=== PATIENT | male | born 1945 | race Caucasian/White ===

== ENCOUNTER 2024-02-28 07:35 | Emergency (ER) | payer MEDICARE, SELFPAY ==
[2024-02-28] VITALS (11 sets, daily range): BP systolic 80–152; BP diastolic 52–87; BMI 41.8
[2024-02-28] MEDS: NITROSTAT (SUBLINGUAL) 0.400000000000000022 MG SL (08:05)
[2024-02-28 08:23] LABS: % Basophils 0.3 % (0-2); % Immature Granulocytes 0.5 % (0-0.5); % Lymphocytes 9.6 % (20.5-51.1); % Monocytes 5.5 % (1.7-9.3); % Neutrophils 83.1 % (42.2-75.2); Absolute Eosinophils 0.1 10^3/uL (0-0.7); Absolute Lymphocytes 0.8 10^3/uL (1.2-3.4); Absolute Monocytes 0.5 10^3/uL (0.1-0.6); Absolute Neutrophils 7.3 10^3/uL (1.4-6.5); Hematocrit 43.6 % (39.0-52.0); Hemoglobin 14.7 g/dL (13.0-18.0); Mean Corp Hgb Conc. 33.7 g/dL (33.0-37.0); Mean Corpuscular Hgb 29.9 pg (27.0-31.0); Mean Corpuscular Volume 88.8 fL (80.0-94.0); Mean Platelet Volume 9.9 fL (7.4-10.4); Nucleated Red Blood Cells % 0 % (-); Platelet Count 221 10^3/uL (130-400); Red Blood Cell Count 4.91 10^6/uL (4.70-6.10); Red Cell Dist. Width 13.3 % (11.5-14.5); White Blood Cell Count 8.8 10^3/uL (4.8-10.8)
[2024-02-28] MEDS: NSS 1000 IV (08:39)
[2024-02-28 08:42] LABS: ALT (SGPT) 32 U/L (0-50); AST (SGOT) 31 U/L (17-59); Albumin 4.4 g/dl (3.5-5.0); Alkaline Phosphatase 105 U/L (38-126); Blood Urea Nitrogen 18 mg/dl (9-20); Calcium 9.4 mg/dl (8.4-10.2); Carbon Dioxide 27 mmol/L (22-30); Chloride 104 mmol/L (98-107); Estimated Creatinine Clearance 95 ml/min; Glucose 140 mg/dl (70-99); Lipase 408 U/L (23-300); Magnesium 1.9 mg/dl (1.6-2.3); Potassium 4.3 mmol/L (3.5-5.1); Sodium 137 mmol/L (135-145); Total Bilirubin 0.5 mg/dl (0.2-1.3); Total Protein 6.9 g/dl (6.3-8.2); eGFR > 60.00
[2024-02-28 08:53] LABS: Troponin I < 0.012 ng/ml
[2024-02-28 11:34] LABS: Troponin I < 0.012 ng/ml
[2024-02-28] MEDS: TORADOL 30 MG IV (12:33)
--- NOTE | 2024-02-28 14:46 | ED.GENMED ---
History of Present Illness
General
Chief Complaint: Chest Pain
Source: patient and spouse
Time Seen by Provider: 02/28/24 07:46
Travel History
Have you had any contact with someone who has COVID-19?: No
Do you have any symptoms of coronavirus? Fever > 100 degrees, chills, cough, shortness of breath, sore throat, loss of taste or smell, muscle aches, or headache?: No
History of Present Illness
History of Present Illness:
78-year-old male who presents with chest tightness that began around 3:30 in the morning. He states it woke him up. Radiate up into his shoulders and up to his jaw. He states he is never had pain like this before. He does feel like the pain is
little worse when takes a deep breath but is more tightness. No vomiting. No belching.
Past History
Past History
ED Past Medical History: HTN, Hypercholesterolemia and Other (Rheumatic fever)
ED Past Surgical History: Other (hernia repair)
Social History
Personal:
Living: with family
Employment: Retired
Phy Exam
Physical Exam
Physical Exam:
CONSTITUTIONAL Patient alert and oriented to person, place and time. Well-appearing. Vital signs reviewed.
HEAD atraumatic, normocephalic.
EYES eyelids normal to inspection, Pupils equally round and reactive to light, Extraocular muscles intact, Conjunctiva normal, Sclera normal.
NECK normal range of motion, Trachea midline, no jugular venous distention.
RESPIRATORY CHEST No respiratory distress noted, Chest expansion equal, Bilateral breath sounds clear.
CARDIOVASCULAR regular rate and rhythm, Heart sounds normal.
ABDOMEN abdomen nontender, Bowel sounds normal. No distention.
BACK normal inspection, no obvious deformities
UPPER EXTREMITY range of motion normal, Motor strength normal, no cyanosis, no edema.
LOWER EXTREMITY range of motion normal, Motor strength normal, no cyanosis, no edema.
NEURO Speech normal, No focal motor deficits, [place] coma scale 15, Memory normal, Cranial Nerves intact to screening exam.
SKIN skin warm, dry, and normal in color.
PSYCHIATRIC patient oriented to person place and time, Normal affect.
Scores
Heart Score for Chest Pain Patients
STEMI patient?: No
History: Moderately Suspicious
ECG: Nonspecific Repolarization
Age: >/= 65 years
Risk Factors: 1 or 2 Risk Factors
Troponin: </= Normal Limit
Heart Score for Chest Pain Patients: 5
Heart Score Risk: 20.3% MACE over next 6 weeks
Course
Orders/Labs/Results
Orders:
Orders
02/28/24 07:35
ECG [Electrocardiogram (*1)] Urgent
Reason for Study: Chest Pain
02/28/24 07:36
EKG- Treatment ONCE
02/28/24 08:01
Nitroglycerin Sublingual [Nitrostat (Sublingual)] 0.4 mg .ROUTE .STK-MED ONE
02/28/24 08:02
EKG [Electrocardiogram (*1)] Urgent
Reason for Study: Chest Pain
02/28/24 08:03
EKG- Treatment ONCE
02/28/24 08:04
Cardiac Monitoring- Treatment ONCE
Nitroglycerin Sublingual [Nitrostat (Sublingual)] 0.4 mg SL [id number] PRN
02/28/24 08:15
Complete Blood Count/With Diff Urgent
Comprehensive Metabolic Panel Urgent
Lipase Urgent
Magnesium Urgent
Troponin I Urgent
0.9% Sodium Chloride 1000 ml [Nss] 1,000 ml IV BOLUS
02/28/24 08:16
CT Chest Pe Study Stat
Comment:
Reason For Exam: cp, sob
02/28/24 10:55
Troponin I Urgent
02/28/24 12:26
Ketorolac [Toradol] 30 mg .ROUTE .STK-MED ONE
02/28/24 12:33
Ketorolac [Toradol] 30 mg IV NOW STA
02/28/24 15:01
Electrocardiogram (*1) Stat
Reason for Study: Other
Other Reason for Exam: chest pain
EKG- Treatment ONCE
Abnormal Lab Results
02/28/24
08:15
Absolute Neuts (auto) 7.3 H 10^3/uL
(1.4-6.5)
Absolute Lymphs (auto) 0.8 L 10^3/uL
(1.2-3.4)
Neutrophils % 83.1 H %
(42.2-75.2)
Lymphocytes % 9.6 L %
(20.5-51.1)
Glucose 140 H mg/dl
(70-99)
Lipase 408 H U/L
(23-300)
02/28/24 08:15
02/28/24 08:15
Vital Signs
Initial and Last Documented VS:
Initial Vital Signs
Pulse Resp BP Pulse Ox
92 20 147/81 97
02/28/24 07:41 02/28/24 07:41 02/28/24 07:41 02/28/24 07:41
Last Documented Vital Signs
Pulse Resp BP Pulse Ox
98 31 129/66 93
02/28/24 12:30 02/28/24 12:30 02/28/24 12:00 02/28/24 14:02
MDM/Problems Addressed
MDM/Problems Addressed:
Chest pain
*Pulse Oximetry
Patient hypoxic: no
*EKG
Interpreted by ED Provider?: Yes
Rate: normal
Rhythm: sinus
[place]: normal axis
Ischemia: non-specific ST changes
*Mechanic Interpretation
Rate: normal
Interpretation: normal
Rhythm: sinus
*Critical Care Note
Total Time (30-74mins, 75-104mins- exclusive of procedures): Not Applicable
Data Reviewed
Source: patient and spouse
Prescriptions/Medications Considered But Not Given:
Consider further nitroglycerin but initial dose dropped his blood pressure.
Further Testing Considered But Not Given:
Considered heparin but troponin negative x 2
Patient Management
Escalation/DeEscalation of care consider admission/obs:
78-year-old male did present with concerning symptoms that EKG x 2, troponin x [address] unremarkable. pt appears well. remains in nsr. will refer for outpt f/u. VS ok.
ED Attending Note
-
Portions of this chart may have been created with voice recognition software.� Occasional wrong word or��sound alike� substitutions may have occurred due to the inherent limitations of voice recognition software.
Discharge Plan
Departure
Patient Disposition: Home (Routine Discharge)
Date of Disposition: 02/28/24
Time of Disposition: 15:00
Patient with high blood pressure during this ER visit?: No
Discharge Problem:
Chest pain
Instructions: Chest Pain CBC Follow Up, Chest Pain PCP Follow Up
Prescriptions:
No Action
atorvastatin 40 mg Tablet
40 mg PO DAILY
gabapentin 600 mg Tablet
2,400 mg PO DAILY
lisinopril 20 mg Tablet
20 mg PO DAILY
aspirin 81 mg Tablet,Delayed Release (Dr/Ec)
81 mg PO DAILY
coenzyme Q10 [CoQ-10] 100 mg Capsule
100 mg PO DAILY
duloxetine 30 mg Capsule,Delayed Release(Dr/Ec)
60 mg PO DAILY
Patient Comments:
02/28/2024, last filled on 09/18/2023 for 90-day supply.
cholecalciferol (vitamin D3) 50 mcg (2,000 unit) Tablet
50 mcg PO DAILY
alpha lipoic acid 600 mg Capsule
600 mg PO DAILY
Men's 50 Plus Multivitamin 400-20-370 mcg Tablet
1 tab PO DAILY
Fenugreek Supplement 2,400 mg capsule
2,400 mg PO DAILY
Referrals:
NONE,* [Family Provider] -
Activity Restrictions/Additional Instructions:
Please take 81 mg of aspirin a day. Please avoid strenuous or exertional activity until cleared by cardiology. Please see cardiology in the next 48 hours for reevaluation. Return immediately for worsening pain, shortness breath, palpitations,
sweating, nausea, weakness of any kind, numbness, tingling or any other concerns.
Cardiology has been notified and a follow up appointment has been requested. Someone will call you on the next business day to schedule a follow up appointment.
Interventions
Interventions:
*Risk Screen - Suicide Last Done: 02/28/24 08:00
*General Assessment Last Done: 02/28/24 08:00
*Neglect/Abuse Screening Last Done: 02/28/24 08:00
ED- Fall Risk Assessment Last Done: 02/28/24 08:00
*ED COVID-19 Vaccine History Last Done: 02/28/24 07:41
*Nursing Disposition Last Done: 02/28/24 15:00
ED- Cardiac Assessment Last Done: 02/28/24 08:00
Discharge Date and Time
Discharge Date/Time: 02/28/24 15:00
Print Language: KENYAN
== END 2024-02-28 15:00 | disposition home or self-care (01) ==
LOC: EMR 07:35
PROVIDERS: EMERGENCY PHYSICIAN Emergency Medicine
DX: R07.89 Other chest pain (principal); I10 Essential (primary) hypertension; E78.00 Pure hypercholesterolemia, unspecified; I00 Rheumatic fever without heart involvement
CPT/HCPCS: 99284; 96374; 96361; 71275; 80053; 83690; 83735; 84484; 85025; 93005; Q9967